=== PATIENT | male | born 1980 | race Caucasian/White ===

== ENCOUNTER 2018-04-10 00:05 | Emergency (ER) | payer SELFPAY ==
--- NOTE | 2018-04-10 00:57 | ED ---
Substance Abuse/Use - HPI Summary HPI Summary: 37 year old M BIB police to [facility] with a chief complaint of ETOH intoxication since two hours ago. Symptoms aggravated by nothing. Symptoms alleviated by nothing. Patient's roommate called police because she was concerned about the abrasion on his back. Patient admits to drinking Bacardi 151. He also admits to marijuana use. Patient is a smoker. - History Of Current Complaint Chief Complaint: EDSubstanceAbuse Stated Complaint: 2208 Time Seen by Provider: 04/10/18 00:40 Hx Obtained From: Patient Aggravating Factor(s): Nothing Alleviating Factor(s): Nothing - Allergies/Home Medications Allergies/Adverse Reactions: Allergies Allergy/AdvReac Type Severity Reaction Status Date / Time ENVIRONMENTAL/SEASONAL Allergy Runny Nose Uncoded 04/10/18 00:53 HAYFEVER PMH/Surg Hx/FS Hx/Imm Hx Previously Healthy: No Endocrine/Hematology History: Denies: Hx Diabetes, Hx Thyroid Disease Cardiovascular History: Denies: Hx Hypertension Respiratory History: Denies: Hx Asthma, Hx Chronic Obstructive Pulmonary Disease (COPD) GI History: Denies: Hx Ulcer Sensory History: Denies: Hx Contacts or Glasses, Hx Hearing Aid Opthamlomology History: Denies: Hx Contacts or Glasses Neurological History: Reports: Hx Migraine - NONE AFTER TEETH EXTRACTION Psychiatric History: Reports: Hx Depression - AGE 18 BUT GREW OUT OF IT, NO MEDS - Surgical History Surgery Procedure, Year, and Place: [place] [facility] [place], OFFICE, inguinal hernia repair Hx Anesthesia Reactions: No Infectious Disease History: No Infectious Disease History: Denies: Hx Hepatitis, Hx Human Immunodeficiency Virus (HIV), Traveled Outside the [place] in Last 30 Days - Social History Alcohol Use: Daily Alcohol Amount: drinks "151" Hx Substance Use: Yes Substance Use Type: Reports: Marijuana Hx Tobacco Use: Yes Smoking Status (MU): Heavy Every Day Tobacco Smoker Review of Systems Negative: Fever Positive: Other - ETOH intoxication, admits to drinking Bacardi 151 All Other Systems Reviewed And Are Negative: Yes Physical Exam - Summary Physical Exam Summary: GENERAL:Patient is a well-developed and nourished M who is lying comfortable in the stretcher. Patient is not in any acute respiratory distress. HEAD AND FACE: Normocephalic EYES: PERRLA, EOMI x 2. EARS: Hearing grossly intact. MOUTH: Oropharynx within normal limits. NECK: Supple, trachea is midline, no adenopathy, no JVD, no carotid bruit. CHEST: Symmetric, no tenderness at palpation LUNGS: Expiratory wheezing in both lungs CVS: Regular rate and rhythm, S1 and S2 present, no murmurs or gallops appreciated. ABDOMEN: Soft, non-tender. Bowel sounds are normal. No abdominal abnormal pulsations. EXTREMITIES: Full ROM in all major joints, no edema, no cyanosis or clubbing. NEURO: Alert and oriented x 3. No acute neurological deficits. Speech is normal and follows commands. SKIN: Abrasion seen on left lower back Triage Information Reviewed: Yes Vital Signs On Initial Exam: Initial Vitals Temp Pulse Resp BP Pulse Ox 98.3 F 73 18 133/93 99 04/10/18 00:11 04/10/18 00:11 04/10/18 00:11 04/10/18 00:11 04/10/18 00:11 Vital Signs Reviewed: Yes Diagnostics - Vital Signs Vital Signs Temp Pulse Resp BP Pulse Ox 04/10/18 00:11 98.3 F 73 18 133/93 99 - Laboratory Result Diagrams: 04/10/18 01:01 04/10/18 01:01 Lab Statement: Any lab studies that have been ordered have been reviewed, and results considered in the medical decision making process. Course/Dx - Course Course Of Treatment: 37 year old M BIB police to [facility] with a chief complaint of ETOH intoxication since two hours ago. Workup is remarkable with alcohol 296. The patient intoxicated, awaiting clinical sobriety, so he will be signed out to Dr. Avila at shift change. - Diagnoses Provider Diagnoses: Alcohol intoxication Discharge - Sign-Out/Discharge Documenting (check all that apply): Sign-Out Patient Signing out patient TO: Emily Avila - Awaiting clinical soberity - Discharge Plan Condition: Stable Disposition: HOME Patient Education Materials: Alcohol Intoxication (ED) Referrals: Mitul Harris MD [Primary Care Provider] - Additional Instructions: Please start going to a drug and alcohol rehab program. Please start attending alcohol anonymous meetings. return if worse or any new symptoms. It is important to follow up with your doctor. - Billing Disposition and Condition Condition: STABLE Disposition: Home - Attestation Statements Document Initiated by Scribe: Yes Documenting Scribe: Judith Nazario Provider For Whom Scribe is Documenting (Include Credential): Clemente Petty MD Scribe Attestation: I, Judith Nazario, scribed for Clemente Petty MD on 04/11/18 at 0316. Scribe Documentation Reviewed: Yes Provider Attestation: The documentation as recorded by the scribe, Judith Nazario accurately reflects the service I personally performed and the decisions made by me, Clemente Petty MD
[2018-04-10 01:24] LABS: ABS Basophils 0.1 10^3/ul (0-0.2); ABS Eosinophils 0.2 10^3/ul (0-0.6); ABS Lymphocytes 2.6 10^3/ul (1.0-4.8); ABS Monocytes 0.5 10^3/ul (0-0.8); ABS Neutrophils 6.9 10^3/ul (1.5-7.7); ABS Nucleated RBC 0 10^3/ul; Eosinophil % 2.4 % (0-6); Hematocrit 47 % (42-52); Hemoglobin 16.5 g/dl (14.0-18.0); Lymphocyte % 24.8 % (25-47); Mean Corpuscular HGB Conc 35 g/dl (31-36); Mean Corpuscular Hemoglobin 34 pg (27-31); Mean Corpuscular Volume 95 fL (80-94); Nucleated Red Blood Cells % 0.1; Platelet Count 261 10^3/ul (150-450); Red Blood Count 4.91 10^6/ul (4.00-5.40); Red Cell Distribution Width 16 % (10.5-15); White Blood Count 10.4 10^3/ul (3.5-10.8)
[2018-04-10 01:25] LABS: EGFR Non-African American 111.6 (>60)
--- NOTE | 2018-04-10 07:12 | ED ---
Progress - Progress Note Progress Note: Patient was signed out from Dr. Petty to Dr. Avila upon physician shift change pending discharge and disposition. Re-Evaluation - Re-Evaluation 1st re-eval Re-Evaluation Time: 10:05 Change: Improved Comment: Pt admits to being an alcoholic has been to drug and rehab before. He says he doesnt have time for rehab works since he works 70 hours a week. Says he drinks at home alone. I asked if we can provide any information for alcohol or drug services, he said no. Pt is ambulatory without any difficulty. Pt says he will call for a ride home. Course/Dx - Course Course Of Treatment: Pt is signed out to Dr. Avila from Dr. Petty upon shift change pending discharge and disposition. Pt admits to being an alcoholic has been to drug and rehab before. He says he doesnt have time for rehab works since he works 70 hours a week. Says he drinks at home alone. I asked if we can provide any information for alcohol or drug services, he said no. Pt is ambulatory without any difficulty. Pt says he will call for a ride home. Patient will be discharged home. Pt is agreeable with this plan. - Diagnoses Provider Diagnoses: Alcohol intoxication Discharge - Sign-Out/Discharge Documenting (check all that apply): Patient Departure - discharge home - Discharge Plan Condition: Stable Disposition: HOME Patient Education Materials: Alcohol Intoxication (ED) Referrals: Mitul Harris MD [Primary Care Provider] - Additional Instructions: Please start going to a drug and alcohol rehab program. Please start attending alcohol anonymous meetings. return if worse or any new symptoms. It is important to follow up with your doctor. - Billing Disposition and Condition Condition: STABLE Disposition: Home - Attestation Statements Document Initiated by Scribe: Yes Documenting Scribe: Malena Cleary Provider For Whom Jaelibe is Documenting (Include Credential): Emily Avila MD Scribe Attestation: Malena Mares, scribed for Emily Avila MD on 04/10/18 at 1705. Scribe Documentation Reviewed: Yes Provider Attestation: The documentation as recorded by the scribe, Malena Cleary accurately reflects the service I personally performed and the decisions made by , Emily Avila MD
[2018-04-10 10:18] VITALS: BP 125/83
== END 2018-04-10 10:10 | disposition home or self-care (01) ==
LOC: ED 00:05
DX: F10.129 Alcohol abuse with intoxication, unspecified (principal); Y90.8 Blood alcohol level of 240 mg/100 ml or more; F17.210 Nicotine dependence, cigarettes, uncomplicated
CPT/HCPCS: 36415; 80053; 80320; 80329; 85025; 99283; G0480

== ENCOUNTER 2020-08-07 13:19 | Inpatient (IN) ==
[2020-08-07] MEDS ORDERED: NS 0.9% 1000 ml BAG 1,000 ML IV ONE ×2 (15:37→18:37)
[2020-08-07] MEDS ORDERED: Morphine 4 MG/ML VIAL (1 ml) IV ONE (15:37)
[2020-08-07] MEDS ORDERED: Ondansetron 4 mg VIAL 2 MG/ML 2 ml VIAL IV ONE (15:37)
[2020-08-07] MEDS ORDERED: Famotidine IV 10 MG/ML 2 ml VIAL (20 mg) IV SLOW PU ONE (15:37)
[2020-08-07 15:59] LABS: Hematocrit 49 % (42-52); Hemoglobin 17.3 g/dL (14.0-18.0); Mean Corpuscular HGB Conc 35 g/dL (31-36); Mean Corpuscular Hemoglobin 36 pg (27-31); Mean Corpuscular Volume 101 fL (80-94); Mean Platelet Volume 6.7 fL (7.4-10.4); Platelet Count 307 10^3/uL (150-450); Red Blood Count 4.86 10^6 /uL (4.18-5.48); Red Cell Distribution Width 16 % (10-15); White Blood Count 23.8 10^3/uL (3.5-10.8)
[2020-08-07 16:19] LABS: ALT 13 U/L (7-52); AST 25 U/L (13-39); Albumin 4.9 g/dL (3.2-5.2); Albumin/Globulin Ratio 1.8 (1-3); Alkaline Phosphatase 173 U/L (34-104); Anion Gap 17 mmol/L (2-11); BUN/Creatinine Ratio 17.9 (8-20); Blood Urea Nitrogen 12 mg/dL (6-24); C Reactive Protein 3.35 mg/L (<8.01); CO2 Carbon Dioxide 23 mmol/L (22-32); Calcium 9.9 mg/dL (8.6-10.3); Chloride 103 mmol/L (101-111); EGFR African American 161.5 (>60); EGFR Non-African American 133.5 (>60); Globulin 2.8 g/dL (2-4); Glucose 131 mg/dL (70-100); Potassium 3.1 mmol/L (3.5-5.0); Sodium 143 mmol/L (135-145); Total Protein 7.7 g/dL (6.4-8.9)
[2020-08-07 16:21] LABS: Troponin I 0.01 ng/mL (<0.03)
[2020-08-07] MEDS ORDERED: Iohexol 300 (CONTRAST) 10 ML SDV IV ONE (16:26)
[2020-08-07] MEDS ORDERED: Lactated Ringers 1000 ml BAG 1,000 ML IV ONE (16:36)
[2020-08-07 16:40] LABS: Lipase 1813 U/L (11.0-82.0)
[2020-08-07 16:55] LABS: Magnesium 1.6 mg/dL (1.9-2.7)
[2020-08-07] MEDS ORDERED: Magnesium Sulfate 2 gm BAG 2 GM/50 ML BAG IVPB ONE (17:03)
[2020-08-07 17:22] LABS: Alcohol, S < 10 mg/dL (<10)
[2020-08-07 17:24] LABS: Amylase 465 U/L (29-103)
[2020-08-07] MEDS ORDERED: hydrALAZINE 20 mg/ml 1 ML Vial IV IV SLOW PU ONE ×2 (17:25→18:51)
[2020-08-07] MEDS ORDERED: HYDROmorphone 1 MG/1 ML SYRINGE IV SLOW PU ONE (17:32)
[2020-08-07 17:38] LABS: ABS Monocytes 1.2 10^3/ul (0-0.8); ABS Neutrophils 21.6 10^3/ul (1.5-7.7)
[2020-08-07] MEDS ORDERED: Piperacillin/Tazobac ADVAN 3.375 GM in NS 0.9% 100 ml BAG 100 ML IV ONE (17:55)
[2020-08-07 18:09] LABS: Urine Appearance Clear; Urine Bilirubin Negative (Negative); Urine Blood 1+ (Negative); Urine Color Yellow; Urine Glucose Negative (Negative); Urine Ketones 2+ (Negative); Urine Nitrite Negative (Negative); Urine Protein 2+(100 mg/dL) (Negative); Urine Specific Gravity 1.032 (1.010-1.030); Urine Urobilinogen Negative (Negative)
[2020-08-07] MEDS: KCL 20 MEQ/100 ML IVPREMIX 20 MEQ/100 ML BAG IV SCH (18:11)
[2020-08-07 18:18] LABS: Urine Bacteria Absent (Absent); Urine Red Blood Cell 1+(3-5/hpf) (Absent); Urine White Blood Cell Absent (Absent)
[2020-08-07] MEDS ORDERED: Piperacillin/Tazobac 3.375 GM BAG ONE (18:50)
[2020-08-07] MEDS ORDERED: HYDROmorphone 1 MG/1 ML SYRINGE IV ONE (19:55)
[2020-08-08] MEDS ORDERED: HYDROmorphone 1 MG/1 ML SYRINGE IV SLOW PU PRN (00:03)
[2020-08-08] MEDS ORDERED: Enalaprilat IV 1.25 mg/ml 1 ml VIAL (1.25 MG) IV ONE (02:07)
[2020-08-08] MEDS ORDERED: Ondansetron 4 mg VIAL 2 MG/ML 2 ml VIAL IV PRN (02:13)
[2020-08-08] MEDS: KCL 20 MEQ/100 ML IVPREMIX 20 MEQ/100 ML BAG IV SCH (02:30)
[2020-08-08] MEDS: HYDROmorphone 1 MG/1 ML SYRINGE IV SLOW PU PRN ×4 (02:33→17:56)
[2020-08-08] MEDS ORDERED: Lorazepam PYXIS KEY PRN (02:42)
[2020-08-08] MEDS: Pantoprazole VIAL 40 MG VIAL IV SCH (04:28)
[2020-08-08] MEDS: Multivitamins/Minerals TAB PO SCH (04:29)
[2020-08-08] MEDS: Lactated Ringers 1000 ml BAG 1,000 ML IV SCH ×3 (05:21→22:39)
[2020-08-08] MEDS ORDERED: ZOSYN 3.375 GM x ONE DOSE over 30 miuntes IV (06:30)
[2020-08-08] MEDS ORDERED: Zosyn per Pharmacy NOTE FOLLOW UP SCH (07:00)
[2020-08-08] MEDS ORDERED: hydrALAZINE 20 mg/ml 1 ML Vial IV IV SLOW PU PRN (08:40)
[2020-08-08] MEDS: LORazepam 2 mg VIAL 1 ml IV PUSH SCH ×2 (09:13→11:04)
[2020-08-08 10:04] LABS: Hematocrit 45 % (42-52); Hemoglobin 15.6 g/dL (14.0-18.0); Mean Corpuscular HGB Conc 35 g/dL (31-36); Mean Corpuscular Hemoglobin 35 pg (27-31); Mean Corpuscular Volume 102 fL (80-94); Mean Platelet Volume 7.2 fL (7.4-10.4); Platelet Count 205 10^3/uL (150-450); Red Blood Count 4.43 10^6 /uL (4.18-5.48); Red Cell Distribution Width 16 % (10-15); White Blood Count 23.3 10^3/uL (3.5-10.8)
[2020-08-08 10:08] LABS: ABS Lymphocytes 0.8 10^3/ul (1.0-4.8); ABS Neutrophils 21.4 10^3/ul (1.5-7.7); Lymphocyte % 3.6 %
[2020-08-08 10:29] LABS: BUN/Creatinine Ratio 20.7 (8-20); Potassium 3.7 mmol/L (3.5-5.0)
[2020-08-08 10:30] LABS: C Reactive Protein 144.56 mg/L (<8.01); Calcium 8.8 mg/dL (8.6-10.3); EGFR African American 190.8 (>60); EGFR Non-African American 157.7 (>60)
[2020-08-08] MEDS: cefTRIAXone 2 GM ADDV.VIAL 2 GM in NS 0.9% 100 ml BAG 100 ML IV SCH (11:03)
[2020-08-08] MEDS ORDERED: Enalaprilat IV 1.25 mg/ml 1 ml VIAL (1.25 MG) IV PRN (11:14)
[2020-08-08] MEDS: Piperacillin/Tazobac ADVAN 3.375 GM in NS 0.9% 100 ml BAG 100 ML IV SCH ×2 (12:29→20:13)
[2020-08-08] MEDS ORDERED: Labetalol IV 5 MG/ML 20 ml VIAL IV PUSH ONE (12:39)
[2020-08-08] MEDS ORDERED: Labetalol IV 5 MG/ML 20 ml VIAL IV PUSH PRN (21:53)
[2020-08-09] MEDS: Piperacillin/Tazobac ADVAN 3.375 GM in NS 0.9% 100 ml BAG 100 ML IV SCH (04:16)
[2020-08-09 06:06] LABS: ABS Lymphocytes 1.2 10^3/ul (1.0-4.8); Eosinophil % 0.1 %; Hematocrit 40 % (42-52); Hemoglobin 14.3 g/dL (14.0-18.0); Lymphocyte % 6.6 %; Mean Corpuscular HGB Conc 35 g/dL (31-36); Mean Corpuscular Hemoglobin 36 pg (27-31); Mean Corpuscular Volume 100 fL (80-94); Mean Platelet Volume 7.1 fL (7.4-10.4); Platelet Count 155 10^3/uL (150-450); Red Blood Count 4.03 10^6 /uL (4.18-5.48); Red Cell Distribution Width 16 % (10-15); White Blood Count 18.3 10^3/uL (3.5-10.8)
[2020-08-09 06:37] LABS: Albumin 3.5 g/dL (3.2-5.2); Albumin/Globulin Ratio 1.3 (1-3); BUN/Creatinine Ratio 17.3 (8-20); Calcium 8.6 mg/dL (8.6-10.3); EGFR African American 216.4 (>60); EGFR Non-African American 178.8 (>60); Globulin 2.6 g/dL (2-4); Magnesium 1.8 mg/dL (1.9-2.7); Potassium 3.2 mmol/L (3.5-5.0); Total Bilirubin 1.3 mg/dL (0.2-1.0); Total Protein 6.1 g/dL (6.4-8.9)
[2020-08-09] MEDS ORDERED: Labetalol IV 5 MG/ML 20 ml VIAL IV PUSH PRN (07:52)
[2020-08-09] MEDS ORDERED: Magnesium Sulfate IV 3 GM in NS 0.9% 100 ml BAG 100 ML IVPB ONE (07:53)
[2020-08-09] MEDS ORDERED: Potassium Chloride LIQUID 20 MEQ/15 ML LIQUID PO ONE (07:54)
[2020-08-09] MEDS: Pantoprazole VIAL 40 MG VIAL IV SCH (07:59)
[2020-08-09] MEDS: Multivitamins/Minerals TAB PO SCH (07:59)
[2020-08-09] MEDS: cefTRIAXone 2 GM ADDV.VIAL 2 GM in NS 0.9% 100 ml BAG 100 ML IV SCH (11:35)
[2020-08-10 06:16] LABS: ABS Eosinophils 0.1 10^3/ul (0-0.6); ABS Lymphocytes 1.3 10^3/ul (1.0-4.8); ABS Monocytes 0.8 10^3/ul (0-0.8); ABS Neutrophils 11.2 10^3/ul (1.5-7.7); Eosinophil % 0.6 %; Hematocrit 42 % (42-52); Hemoglobin 14.8 g/dL (14.0-18.0); Lymphocyte % 9.9 %; Mean Corpuscular HGB Conc 35 g/dL (31-36); Mean Corpuscular Hemoglobin 35 pg (27-31); Mean Corpuscular Volume 101 fL (80-94); Mean Platelet Volume 7.4 fL (7.4-10.4); Platelet Count 154 10^3/uL (150-450); Red Blood Count 4.18 10^6 /uL (4.18-5.48); Red Cell Distribution Width 15 % (10-15); White Blood Count 13.3 10^3/uL (3.5-10.8)
[2020-08-10 06:36] LABS: Albumin 3.7 g/dL (3.2-5.2); Albumin/Globulin Ratio 1.4 (1-3); Calcium 8.8 mg/dL (8.6-10.3); EGFR African American 249.3 (>60); Globulin 2.7 g/dL (2-4); Potassium 3.1 mmol/L (3.5-5.0); Total Bilirubin 1.2 mg/dL (0.2-1.0); Total Protein 6.4 g/dL (6.4-8.9)
[2020-08-10] MEDS: Multivitamins/Minerals TAB PO SCH (07:44)
[2020-08-10] MEDS: Pantoprazole VIAL 40 MG VIAL IV SCH (07:45)
[2020-08-10] MEDS ORDERED: Potassium Chlor 20 meq TAB.ER PO ONE (08:17)
[2020-08-10] MEDS ORDERED: KCL 10 MEQ/50 ML IVPREMIX 10 MEQ/50 ML BAG IV SCH (09:00)
[2020-08-10] MEDS: cefTRIAXone 2 GM ADDV.VIAL 2 GM in NS 0.9% 100 ml BAG 100 ML IV SCH (10:48)
[2020-08-10 12:22] VITALS: BP 156/105
== END 2020-08-10 12:45 | disposition left against medical advice (07) | DRG 282 ==
LOC: ED 13:19 → MED 23:12
PROVIDERS: ADMIT Internal Medicine; ATTEND Internal Medicine